=== PATIENT | female | born 1935 | race Asian ===

== ENCOUNTER 2017-04-15 13:12 | Inpatient (IN) | payer MEDICARE ==
[~2017-04-15] VITALS: Ht 149.9 cm; Wt 60.1 kg
[2017-04-15] MEDS ORDERED: SODIUM CHLORIDE FLUSH 10ML SYR IVF ONE (14:00)
[2017-04-15] MEDS ORDERED: SODIUM CHLORIDE 0.9% 1,000ML IVBOLUS ONE (14:00)
[2017-04-15] MEDS ORDERED: PIPERACILLIN/TAZO/PMX 3.375GM 50 ML IV ONE (14:30)
[2017-04-15 14:59] LABS: INTERNATIONAL NORMALIZED RATIO 1.22 (0.93-1.1); PROTHROMBIN TIME 12.5 Seconds (9.6-11.5)
[2017-04-15 15:01] LABS: ALBUMIN 2.6 g/dL (3.4-5.0); ANION GAP 8 mmol/L (5-15); CALCIUM 8.3 mg/dL (8.5-10.1); CHLORIDE 99 mmol/L (98-107)
[2017-04-15 15:07] LABS: ALANINE AMINOTRANSFERASE 20 U/L (12-78); ALKALINE PHOSPHATASE 99 U/L (45-117); BILIRUBIN,TOTAL 0.8 mg/dL (0.2-1.0); CREATININE 1.87 mg/dL (0.55-1.02); TOTAL PROTEIN 6.8 g/dL (6.4-8.2)
[2017-04-15 15:12] LABS: TROPONIN I 0.181 ng/mL (0.000-0.045)
[2017-04-15 15:25] LABS: MD YES
[2017-04-15 15:26] LABS: MEAN CORPUSCULAR HEMOGLOBIN 21.8 pg (27.0-34.8); MEAN CORPUSCULAR HGB CONC 30.6 g/dL (32.4-35.8); MEAN CORPUSCULAR VOLUME 71.4 fL (80-100); MEAN PLATELET VOLUME 11.9 fL (7.4-10.4); PLATELET COUNT 152 x10^3/uL (130-400); RED BLOOD COUNT 6.02 x10^6/uL (3.82-5.3); RED CELL DISTRIBUTION WIDTH 20.6 % (9.6-15.2)
[2017-04-15 15:27] LABS: CULTURE INDICATED? NO; MICROSCOPIC AUTO
[2017-04-15 15:31] LABS: EOS#(MANUAL) 0.06 x10^3/uL (0.0-0.4); EOS% (MANUAL) 1 % (1-7); LYMPH#(MANUAL) 0.88 x10^3/uL (1-3.4); LYMPHS% (MANUAL) 14 % (22-44); MONOS#(MANUAL) 0.76 x10^3/uL (0.3-2.7); MONOS% (MANUAL) 12 % (2-9); SEGS% (MANUAL) 73 % (42-75)
[2017-04-15 15:32] LABS: HYPOCHROMIA 2+; MICROCYTOSIS 1+; OVALOCYTES 1+; TARGET CELLS 1+
[2017-04-15 15:33] LABS: POLYCHROMASIA 1+
[2017-04-15 15:35] LABS: <PLATELET ESTIMATE> ADEQUATE; LARGE PLATELETS 1+
[2017-04-15] MEDS ORDERED: ANTI INHIBITOR COAGULANT COMP IVPush ONE (16:30)
[2017-04-15] MEDS ORDERED: morphine SULFATE 10 MG/ML, 1ML IVPush ONE (16:30)
[2017-04-15] MEDS ORDERED: ACETAMINOPHEN 325 MG TABLET PO ONE (16:30)
[2017-04-15] MEDS ORDERED: ANTI INHIBITOR COAGULANT COMP IVPB ONE (17:00)
[2017-04-15] MEDS ORDERED: ACETAMINOPHEN 325 MG TABLET PO PRN (17:00)
[2017-04-15] MEDS ORDERED: POLYETHYLENE GLYCOL 17 GM PACKET PO PRN (17:00)
[2017-04-15] MEDS ORDERED: ONDANSETRON 2MG/ML, 2ML IVPush PRN (17:00)
[2017-04-15] MEDS ORDERED: MORPHINE SULFATE 4 MG/ML, 1ML ONE (17:12)
[2017-04-15] MEDS ORDERED: LABETALOL 5MG/ML, 20ML ONE (17:12)
[2017-04-15] MEDS: LABETALOL 5MG/ML, 20ML IVPush PRN ×3 (17:17→23:42)
[2017-04-15] MEDS ORDERED: ONDANSETRON 2MG/ML, 2ML ONE (17:19)
[2017-04-15] MEDS: SODIUM CHLORIDE 0.9% 1,000 ML IV SCH (17:21)
[2017-04-15 21:54] VITALS: BP 177/107
[2017-04-16] MEDS: SODIUM CHLORIDE 0.9% 1,000 ML IV SCH ×2 (03:01→17:27)
[2017-04-16 04:00] VITALS: BP 115/54
[2017-04-16 04:43] LABS: BASOPHILS # (AUTO) 0.01 x10^3/uL (0-0.1); BASOPHILS % (AUTO) 0 % (0-1); EOSINOPHILS % (AUTO) 0 % (1-7); LYMPHOCYTES # (AUTO) 0.66 x10^3/uL (1-3.4); LYMPHOCYTES % (AUTO) 8 % (22-44); MD NO; MEAN CORPUSCULAR HEMOGLOBIN 21.7 pg (27.0-34.8); MEAN CORPUSCULAR HGB CONC 30.8 g/dL (32.4-35.8); MEAN CORPUSCULAR VOLUME 70.5 fL (80-100); MEAN PLATELET VOLUME 11.4 fL (7.4-10.4); MONOCYTES # (AUTO) 0.96 x10^3/uL (0.2-0.8); MONOCYTES % (AUTO) 12 % (2-9); NEUTROPHILS # (AUTO) 6.49 x10^3/uL (1.8-6.8); NEUTROPHILS % (AUTO) 80 % (42-75); PLATELET COUNT 136 x10^3/uL (130-400); RED BLOOD COUNT 5.52 x10^6/uL (3.82-5.3); RED CELL DISTRIBUTION WIDTH 19.1 % (9.6-15.2)
[2017-04-16 04:47] LABS: INTERNATIONAL NORMALIZED RATIO 1.08 (0.93-1.1); PROTHROMBIN TIME 11.1 Seconds (9.6-11.5)
[2017-04-16 04:54] LABS: CHLORIDE 103 mmol/L (98-107)
[2017-04-16 05:03] LABS: ALANINE AMINOTRANSFERASE 14 U/L (12-78); ALBUMIN 2.4 g/dL (3.4-5.0); ALKALINE PHOSPHATASE 81 U/L (45-117); ANION GAP 7 mmol/L (5-15); BILIRUBIN,TOTAL 0.8 mg/dL (0.2-1.0); CALCIUM 7.8 mg/dL (8.5-10.1); CREATININE 1.62 mg/dL (0.55-1.02)
[2017-04-16] MEDS: SENNA/DOCUSATE TABLET PO SCH (09:00)
[2017-04-16 10:06] LABS: HEMOGLOBIN A1C 8.6 % (4.2-6.3)
[2017-04-16] MEDS ORDERED: APIX2.5T PO (15:25)
[2017-04-16] MEDS ORDERED: VIT1TABL3 PO (15:29)
[2017-04-16] MEDS ORDERED: TRAM50TA2 PO (15:37)
[2017-04-16] MEDS ORDERED: LEVO50TA5 PO (15:39)
[2017-04-16] MEDS ORDERED: MAGN200T7 PO (15:41)
[2017-04-16] MEDS ORDERED: TRAZ50TA18 PO (15:43)
[2017-04-16] MEDS ORDERED: DIGO0.12 PO (15:49)
[2017-04-16] MEDS ORDERED: METO-290 PO (15:52)
[2017-04-16] MEDS ORDERED: ATOR-2 PO (15:53)
[2017-04-16] MEDS ORDERED: PANT40TA5 PO (15:55)
[2017-04-16] MEDS ORDERED: FURO40TA6 PO (15:57)
[2017-04-16] MEDS ORDERED: POTA10TA6 PO (15:58)
[2017-04-16] MEDS ORDERED: INSU200I4 SQ (16:00)
[2017-04-16] MEDS ORDERED: INSU100I18 SQ (16:02)
[2017-04-16] MEDS: LABETALOL 5MG/ML, 20ML IVPush PRN ×2 (17:28→20:24)
[2017-04-17] MEDS: LABETALOL 5MG/ML, 20ML IVPush PRN ×3 (00:01→12:32)
[2017-04-17] MEDS: OXYcodone IR 5MG TABLET PO PRN ×4 (02:16→12:38)
[2017-04-17 04:00] VITALS: BP 148/62
[2017-04-17 04:49] LABS: ANION GAP 6 mmol/L (5-15); CALCIUM 8.1 mg/dL (8.5-10.1); CHLORIDE 105 mmol/L (98-107)
[2017-04-17] MEDS ORDERED: DIGOXIN 0.125 MG TABLET PO SCH (10:05)
[2017-04-17] MEDS: SENNA/DOCUSATE TABLET PO SCH (10:58)
[2017-04-17] MEDS: LEVOTHYROXINE 50 MCG TABLET PO SCH (10:59)
[2017-04-17] MEDS: SODIUM CHLORIDE 0.9% 1,000 ML IV SCH (10:59)
[2017-04-17] MEDS ORDERED: hydrALAzine 20 MG/ML, 1ML IV PRN ×2 (15:00→19:00)
[2017-04-17] MEDS: AMLODIPINE 5 MG TABLET PO SCH (15:39)
[2017-04-17] MEDS ORDERED: hydrALAzine 20 MG/ML, 1ML ONE (17:15)
[2017-04-17] MEDS: METOPROLOL TARTRATE 50 MG TABLET PO SCH (17:54)
[2017-04-17] MEDS ORDERED: METOPROLOL TARTRATE 50 MG TABLET PO SCH (18:00)
[2017-04-17] MEDS ORDERED: ATORVASTATIN 40 MG TABLET PO SCH (21:00)
[2017-04-18 04:00] VITALS: BP 143/61
[2017-04-18 04:48] LABS: MEAN CORPUSCULAR HEMOGLOBIN 21.7 pg (27.0-34.8); MEAN CORPUSCULAR HGB CONC 30.4 g/dL (32.4-35.8); MEAN CORPUSCULAR VOLUME 71.3 fL (80-100); MEAN PLATELET VOLUME 10.8 fL (7.4-10.4); PLATELET COUNT 157 x10^3/uL (130-400); RED BLOOD COUNT 5.38 x10^6/uL (3.82-5.3); RED CELL DISTRIBUTION WIDTH 19.7 % (9.6-15.2)
[2017-04-18 04:49] LABS: CHLORIDE 105 mmol/L (98-107)
[2017-04-18 04:56] LABS: ALANINE AMINOTRANSFERASE 11 U/L (12-78); ALBUMIN 2.3 g/dL (3.4-5.0); ALKALINE PHOSPHATASE 79 U/L (45-117); ANION GAP 7 mmol/L (5-15); BILIRUBIN,TOTAL 1.4 mg/dL (0.2-1.0); CALCIUM 8.1 mg/dL (8.5-10.1); CREATININE 1.15 mg/dL (0.55-1.02); TOTAL PROTEIN 6.2 g/dL (6.4-8.2)
[2017-04-18] MEDS: METOPROLOL TARTRATE 50 MG TABLET PO SCH (05:12)
[2017-04-18] MEDS: LEVOTHYROXINE 50 MCG TABLET PO SCH (05:12)
[2017-04-18 06:14] LABS: BASOPHILS % (AUTO) 0 % (0-1); EOSINOPHILS # (AUTO) 0.03 x10^3/uL (0-0.4); EOSINOPHILS % (AUTO) 0 % (1-7); LYMPHOCYTES # (AUTO) 0.46 x10^3/uL (1-3.4); LYMPHOCYTES % (AUTO) 6 % (22-44); MD SCAN; MONOCYTES # (AUTO) 1.07 x10^3/uL (0.2-0.8); MONOCYTES % (AUTO) 13 % (2-9); NEUTROPHILS # (AUTO) 6.43 x10^3/uL (1.8-6.8); NEUTROPHILS % (AUTO) 80 % (42-75)
[2017-04-18] MEDS: SENNA/DOCUSATE TABLET PO SCH (08:08)
[2017-04-18 09:36] VITALS: BP 143/69
[2017-04-18 10:50] LABS: TROPONIN I 0.122 ng/mL (0.000-0.045)
[2017-04-18] MEDS: AMLODIPINE 5 MG TABLET PO SCH (15:31)
== END 2017-04-18 16:03 | DRG 82 ==
LOC: ED 15:54 → EDIP 15:59 → ED 16:25 → CCU 19:16
PROVIDERS: ADMIT Internal Medicine; ATTEND Internal Medicine
DX: S06.5X9A Traumatic subdural hemorrhage with loss of consciousness of unspecified duration, initial encounter (principal); E43 Unspecified severe protein-calorie malnutrition; N19 Unspecified kidney failure; E86.0 Dehydration; E11.649 Type 2 diabetes mellitus with hypoglycemia without coma; I48.2 Chronic atrial fibrillation; R56.9 Unspecified convulsions; E86.1 Hypovolemia; I34.0 Nonrheumatic mitral (valve) insufficiency; I37.1 Nonrheumatic pulmonary valve insufficiency; W18.39XA Other fall on same level, initial encounter; E03.9 Hypothyroidism, unspecified; E78.5 Hyperlipidemia, unspecified; I10 Essential (primary) hypertension; Z79.01 Long term (current) use of anticoagulants; Y93.89 Activity, other specified; Y92.89 Other specified places as the place of occurrence of the external cause; Y99.8 Other external cause status; Z86.73 Personal history of transient ischemic attack (TIA), and cerebral infarction without residual deficits; Z68.26 Body mass index [BMI] 26.0-26.9, adult
CPT/HCPCS: 36415; 70450; 71010; 72125; 80048; 80053; 81001; 82728; 83036; 83540; 83550; 83735; 84484; 85025; 85610; 85730; 87081; 93005; 93306; 96361; 96365; 96375; J2405; J7198; 92523-GN; J0360; J2270; J7030; J7050